=== PATIENT | male | born 1955 | race Caucasian/White ===

== ENCOUNTER 2024-08-13 06:19 | Day surgery (SDC) | payer MEDICARE, OTHER ==
[2024-08-13] MEDS: Lactated Ringers 1,000 ML IV SCH (06:36)
[2024-08-13 06:40] VITALS: RESP 16
[2024-08-13 07:19] LABS: ANION GAP 19.4 MEQ/L (5-15); Calcium 9.8 mg/dL (8.4-10.2); Creatinine 1 2.01 mg/dL (0.66-1.25); EST GLOMERULAR FILTRATION RATE 34.8 ML/MIN; Potassium 4.1 mmol/L (3.5-5.1)
[2024-08-13] MEDS ORDERED: propofoL IV ONE ×2 (07:59→08:19)
[2024-08-13 09:13] VITALS: BP 155/80; PULSE 51; TEMP 96.7; O2SAT 97
--- NOTE | 2024-08-14 11:10 | OP ---
SURGERY DATE/TIME: 08/13/2024 [id number] PREOPERATIVE DIAGNOSIS: Screening exam, history of colon polyps removed 5 years ago. POSTOPERATIVE DIAGNOSIS: Colonoscopy with colon polyps, 2 in the sigmoid colon. PROCEDURE: Colonoscopy with cold forceps biopsy and hot snare polypectomy x2. SURGEON: Esdras English MD ANESTHESIA: Medication given by the anesthesia department. INDICATIONS: The patient is a 69-year-old white male patient presenting now for screening examination. He had polyps removed approximately [address] Arana at [facility]. The patient is having no symptoms but is felt to need to have endoscopic evaluation. He was apprised of the risks of the procedure including risk of perforation, phlebitis, untoward reaction to medication, bleeding, and missed lesions. The patient verbalized understanding and desired to have procedure performed. DESCRIPTION OF PROCEDURE AND FINDINGS: The patient was given medication by the anesthesia department. He had continuous pulse oximetry, ECG monitoring, and intermittent blood pressure monitoring during the examination. He was placed in the left lateral decubitus position. Digital rectal examination was performed and revealed normal anal sphincter tone, no masses, and a normal prostate. The flexible Olympus videocolonoscope was used to intubate the rectum. A view of the colon was developed sequentially to the cecum. Upon insertion and withdrawal was noted polyps at 20 cm depth insertion. This was biopsied multiple times then removed using hot polypectomy snare and retrieved for pathologic evaluation. There was also noted another polyp at approximately 15 cm depth insertion. This was also likewise removed using hot polypectomy snare. No other mucosal lesions were encountered, the scope was removed from the patient who tolerated the procedure well and sent back to outpatient recovery in good condition. The prep was noted to be fair to good.
== END 2024-08-13 09:25 | disposition home or self-care (01) ==
LOC: SDC 06:19
PROVIDERS: ATTEND Family Medicine
DX: Z12.11 Encounter for screening for malignant neoplasm of colon (principal); Z09 Encounter for follow-up examination after completed treatment for conditions other than malignant neoplasm; Z86.0100 Personal history of colon polyps, unspecified; E11.9 Type 2 diabetes mellitus without complications; D12.5 Benign neoplasm of sigmoid colon
CPT/HCPCS: 36415; 80048; 82947; 99100; J2704